=== PATIENT | male | born 1955 | race Caucasian/White ===

== ENCOUNTER 2018-10-22 08:35 | Emergency (ER) | payer OTHER ==
[~2018-10-22] VITALS: Ht 177.8 cm; Wt 103.8 kg
--- NOTE | 2018-10-22 09:03 | NUR ---
PATIENT PRESENTS TO ED TODAY FOR R POSTERIOR KNEE PAIN STARTING YEST. HX DVT L THIGH (2013), RENAL CELL CARCINOMA LOU TO (LT LUNG, RT KIDNEY, AND ADRENAL GLAND REMOVED) ALSO METS TO LT KIDNEY, ESOPHAGUS, AND LIVER. SPOUSE AT BEDSIDE, PATIENT REPORTS BEING IN [place] VIA AIRPLANE LAST WEEK. AWAITING MD ORDERS, CALL LIGHT WITHIN REACH. KOJO. Addendum: 10/22/18 at 0908 by JAYY PATIENT DENIES SOB.
[2018-10-22] MEDS ORDERED: CABO60TA PO (10:09)
[2018-10-22] MEDS ORDERED: DIPH1TAB6 PO (10:10)
[2018-10-22] MEDS ORDERED: LOPE1TAB4 PO (10:11)
[2018-10-22] MEDS ORDERED: LISI2.5T PO (10:11)
[2018-10-22] MEDS ORDERED: TAMS-11 PO (10:12)
[2018-10-22] MEDS ORDERED: AMLO10TA8 PO (10:12)
[2018-10-22] MEDS ORDERED: LEVO25TA4 PO (10:12)
--- NOTE | 2018-10-22 10:32 | NUR ---
PRECEPTOR RN: BEDSIDE REPORT W/ RN JOYA RECEIVED FROM TAWNYA STOKES, PT CARE ASSUMED AT THIS TIME. PT IN BED, NAD, AWAITING US READ, NO NEEDS AT THIS TIME. WCSUSAN.
--- NOTE | 2018-10-22 10:42 | NUR ---
MD CHOPRA AT BEDSIDE TO DISCUSS US READ & POC, PT TO BE D/C'ED.
[2018-10-22 10:43] VITALS: BP 107/61
== END 2018-10-22 11:14 | disposition home or self-care (01) ==
LOC: ED 10:22
DX: M25.561 Pain in right knee (principal); I10 Essential (primary) hypertension
CPT/HCPCS: 99284